=== PATIENT | male | born 1975 | race Caucasian/White ===

== ENCOUNTER 2023-05-26 16:39 | Emergency (ER) | payer OTHER ==
[2023-05-26] MEDS ORDERED: Ibuprofen 800 MG TAB ONE (17:03)
== END 2023-05-26 17:22 ==
LOC: NAV ERS 16:39
DX: S86.911A Strain of unspecified muscle(s) and tendon(s) at lower leg level, right leg, initial encounter (principal); X50.0XXA Overexertion from strenuous movement or load, initial encounter; Y93.73 Activity, racquet and hand sports
CPT/HCPCS: 99283